=== PATIENT | male | born 1955 | race Caucasian/White ===

== ENCOUNTER → 2017-01-25 | Outpatient (CLI) | payer OTHER | LOC: BMCIMAGING 14:38 | PROVIDERS: ATTEND Nurse Practitioner Adult Health | DX: R05 Cough (principal) ==

== ENCOUNTER 2017-08-03 10:00 | Emergency (ER) | payer OTHER ==
[2017-08-03] MEDS ORDERED: ASPIRIN 81 MG CHEWABLE TAB PO ONE (10:09)
--- NOTE | 2017-08-03 10:11 | EDPHY ---
H & P Stated Complaint: l cp x 2 days/freq airline travel Time Seen by Provider: 08/03/17 10:09 HPI/ROS: CHIEF COMPLAINT: Chest pain x 2-3days HISTORY OF PRESENT ILLNESS: 61-year-old male with no prior history of cardiac disease, no prior history of vasculopathy, arrives via private vehicle complaining 2-3 days days of left-sided chest pain. Unknown specific exacerbating or alleviating factors. Partial relieved with topical Voltaren gel. Does not appear to be exacerbated with exertion. No radiation of pain. No dyspnea. No nausea or vomiting. No syncope or near syncope. No back pain. No peripheral edema. PRIMARY CARE PROVIDER: REVIEW OF SYSTEMS: A ten point review of systems was performed and is negative with the exception of the items mentioned in the HPI PAST MEDICAL & SURGICAL HISTORY: no prior history of coronary artery disease, mi, DVT, PE SOCIAL HISTORY:nonsmoker. No illicit drug use. No cocaine use. Patient travels via airplane frequently PHYSICAL EXAM (Prior to examination, patient consented to physical exam, hands were washed and my usual and customary physical exam procedures followed) 1) GENERAL: Well-developed, well-nourished, alert and oriented. Appears to be in no acute distress. 2) HEAD: Normocephalic, atraumatic 3) HEENT: Pupils equal, round, reactive to light bilaterally. Sclera anicteric. 4) NECK: Full range of motion, no meningeal signs. No carotid bruit 5) LUNGS: Clear auscultation bilaterally, no wheezes, no rhonchi, no retractions. 6) HEART: Regular rate and rhythm, no murmur, no heave, no gallop. 7) ABDOMEN: No guarding, no rebound, no focal tenderness, negative McBurney's, negative Mares's, negative Rovsing's, negative peritoneal sign, 8) MUSCULOSKELETAL: negative Homans no palpable cord. No peripheral edema or discoloration. 9) BACK: No CVA tenderness, no midline vertebral tenderness, no fluctuance, no step-off, no obvious trauma, no visual or palpable abnormality. 10) SKIN: No rash, no petechiae. 11) Psychiatric: Patient is oriented X 3, there is no agitation. DIFFERENTIAL DIAGNOSIS: In no particular order, including but not limited to myocardial ischemia, pulmonary embolus, chest wall pain, pleural inflammation and pulmonary infectious causes. - Personal History Current Tetanus/Diphtheria Vaccine: Yes Tetanus Vaccine Date: 2007 - Medical/Surgical History Hx Asthma: No Hx Chronic Respiratory Disease: No Hx Diabetes: No Hx Cardiac Disease: No Hx Renal Disease: No Hx Cirrhosis: No Hx Alcoholism: No Hx HIV/AIDS: No Hx Splenectomy or Spleen Trauma: No Other PMH: denies - Social History Smoking Status: Never smoked Constitutional: Initial Vital Signs Temperature (C) 36.6 C 08/03/17 10:01 Heart Rate 92 08/03/17 10:01 Respiratory Rate 18 08/03/17 10:01 Blood Pressure 136/80 H 08/03/17 10:01 O2 Sat (%) 96 08/03/17 10:01 O2 Delivery Mode Room Air Allergies/Adverse Reactions: Penicillins Allergy (Mild, Verified 08/03/17 10:01) Rash Home Medications: Medication Instructions Recorded Aspirin 81mg (*) 08/03/17 Medical Decision Making - Diagnostics Imaging Results: Imaging Impressions Chest X-Ray 08/03/17 10:10 Impression: Normal chest x-ray. ED Course/Re-evaluation: 10:15 a.m.: After evaluating the patient, discussed the case with secondary supervising physician Dr Pink . 12:04 p.m.: Patient was seen and evaluated by Dr. Cinthya Pink, see her note. Patient's chest pain is thought to be less than likely secondary to acute cardiac and/or PE pathology in the presence of negative D-dimer and a medium pretest suspicion for PE, negative troponin with symptoms that have been occurring for 3 days. This is not am all inclusive list of the decision-making process however. The patient feels comfortable being discharged. Recommend follow up with primary care provider. Given usual and customary chest pain precautions instructions. - Data Points Laboratory Results: Laboratory Results 08/03/17 10:15 08/03/17 10:15 08/03/17 08/03/17 08/03/17 10:15 10:15 10:15 WBC 4.62 10^3/uL 10^3/uL (3.80-9.50) RBC 5.31 10^6/uL 10^6/uL (4.40-6.38) Hgb 16.0 g/dL g/dL (13.7-17.5) Hct 46.4 % % (40.0-51.0) MCV 87.4 fL fL (81.5-99.8) MCH 30.1 pg pg (27.9-34.1) MCHC 34.5 g/dL g/dL (32.4-36.7) RDW 13.4 % % (11.5-15.2) Plt Count 211 10^3/uL 10^3/uL (150-400) MPV 9.6 fL fL (8.7-11.7) Neut % (Auto) 62.5 % % (39.3-74.2) Lymph % (Auto) 19.9 % % (15.0-45.0) Brantley % (Auto) 10.0 % % (4.5-13.0) Eos % (Auto) 6.3 % % (0.6-7.6) Baso % (Auto) 0.9 % % (0.3-1.7) Nucleat RBC Rel Count 0.0 % % (0.0-0.2) Absolute Neuts (auto) 2.89 10^3/uL 10^3/uL (1.70-6.50) Absolute Lymphs (auto) 0.92 10^3/uL L 10^3/uL (1.00-3.00) Absolute Monos (auto) 0.46 10^3/uL 10^3/uL (0.30-0.80) Absolute Eos (auto) 0.29 10^3/uL 10^3/uL (0.03-0.40) Absolute Basos (auto) 0.04 10^3/uL 10^3/uL (0.02-0.10) Absolute Nucleated RBC 0.00 10^3/uL 10^3/uL (0-0.01) Immature Gran % 0.4 % % (0.0-1.1) Immature Gran # 0.02 10^3/uL 10^3/uL (0.00-0.10) D-Dimer < 0.27 ug/mLFEU ug/mLFEU (0.00-0.50) Sodium 141 mEq/L mEq/L (134-144) Potassium 3.9 mEq/L mEq/L (3.5-5.2) Chloride 106 mEq/L mEq/L (97-110) Carbon Dioxide 24 mEq/l mEq/l (22-31) Anion Gap 11 mEq/L mEq/L (8-16) BUN 14 mg/dL mg/dL (7-23) Creatinine 1.3 mg/dL mg/dL (0.7-1.3) Estimated GFR 57 Glucose 60 mg/dL L mg/dL (70-100) Calcium 9.4 mg/dL mg/dL (8.5-10.4) Troponin I < 0.012 ng/mL ng/mL (0.000-0.034) Medications Given: Discontinued Medications Aspirin (Aspirin) 324 mg PO EDNOW ONE Stop: 08/03/17 10:10 Last Admin: 08/03/17 10:18 Dose: Not Given Ketorolac Tromethamine (Toradol) 15 mg IVP EDNOW ONE Stop: 08/03/17 12:00 Last Admin: 08/03/17 12:04 Dose: 15 mg Departure - Departure Disposition: Home, Routine, Self-Care Clinical Impression: Chest pain Qualifiers: Chest pain type: other chest pain Qualified Code(s): R07.89 - Other chest pain ; R07.8 - Other chest pain Condition: Good Instructions: Chest Pain (ED) Referrals: Que De La Torre MD [Primary Care Provider] - As per Instructions
--- NOTE | 2017-08-03 10:12 | CPEKG ---
Heart Rate: 82 RR Interval: 732 P-R Interval: 148 QRSD Interval: 98 QT Interval: 356 QTC Interval: 416 P Keaton: 40 QRS Keaton: 36 T Wave Keaton: 54 EKG Severity - NORMAL ECG - EKG Impression: SINUS RHYTHM Electronically Signed By: Cinthya Pink 03-Aug-2017 15:23:56
[2017-08-03 10:23] LABS: % IMMATURE GRANULYOCYTES 0.4 % (0.0-1.1); ABSOLUTE IMMATURE GRANULOCYTES 0.02 10^3/uL (0.00-0.10); ADD DIFF? NO; ADD MORPH? NO; ADD SCAN? NO; ATYPICAL LYMPHOCYTE FLAG 0 (0-99); FRAGMENT RBC FLAG 0 (0-99); HEMATOCRIT 46.4 % (40.0-51.0); LEFT SHIFT FLG 0 (0-99); LIPEMIA HEMOLYSIS FLAG 90 (0-99); MEAN CELL HEMOGLOBIN 30.1 pg (27.9-34.1); MEAN CELL HEMOGLOBIN CONCENTR. 34.5 g/dL (32.4-36.7); MEAN CELL VOLUME 87.4 fL (81.5-99.8); MEAN PLATELET VOLUME 9.6 fL (8.7-11.7); PLATELET CLUMPS FLAG 0 (0-99); PLATELET COUNT 211 10^3/uL (150-400); RED BLOOD CELL COUNT 5.31 10^6/uL (4.40-6.38); RED CELL DISTRIBUTION WIDTH 13.4 % (11.5-15.2)
[2017-08-03 10:51] LABS: ANION GAP 11 mEq/L (8-16); CALCIUM 9.4 mg/dL (8.5-10.4); CARBON DIOXIDE 24 mEq/l (22-31); CHLORIDE 106 mEq/L (97-110); CREATININE 1.3 mg/dL (0.7-1.3); GLOMERULAR FILTRATION RATE 57; GLUCOSE 60 mg/dL (70-100); POTASSIUM 3.9 mEq/L (3.5-5.2); SODIUM 141 mEq/L (134-144)
[2017-08-03 11:02] LABS: TROPONIN I < 0.012 ng/mL (0.000-0.034)
[2017-08-03] MEDS ORDERED: KETOROLAC 15 MG/1 ML SDV IVP ONE (11:59)
[2017-08-03 12:20] VITALS: BP 118/76; PULSE 81; RESP 17; TEMP 98.8; O2SAT 96
== END 2017-08-03 12:19 | disposition home or self-care (01) ==
DX: R07.89 Other chest pain (principal)
CPT/HCPCS: 96374; J1885